=== PATIENT | female | born 1935 | race Caucasian/White ===

== ENCOUNTER 2020-07-20 15:25 | Outpatient (CLI) | payer MEDICARE ==
--- NOTE | 2020-07-20 15:47 | RAD ---
XR Hip Rt 2-3 View History: Hip impingement syndrome Comparison: None. Findings: No acute fracture or malalignment. Mild narrowing of the pubic symphysis. Small acetabular osteophyte formation. Moderate degenerative disease lower lumbar spine. Mild degenerative disease of the right SI joint. Soft tissues are unremarkable. Impression: Mild degenerative disease right hip.
--- NOTE | 2020-07-20 15:48 | RAD ---
Lumbar spine: 2 views INDICATIONS:Low back pain COMPARISON:None FINDINGS: Vertebral bodies maintain height in the lateral view. Mild scoliotic curvature in the AP projection. Loss of disc space at all levels of the lumbar spine. Mild posterior listhesis at L3-4. Degenerative spurring and facet hypertrophy at all levels. No soft tissue abnormality. IMPRESSION: Moderate degenerative changes as described
== END 2020-07-20 15:26 | disposition home or self-care (01) ==
LOC: BICRAD 15:25
PROVIDERS: ATTEND Family Medicine
DX: M54.5 Low back pain (principal); M25.851 Other specified joint disorders, right hip; M47.816 Spondylosis without myelopathy or radiculopathy, lumbar region; M16.11 Unilateral primary osteoarthritis, right hip
CPT/HCPCS: 72100